=== PATIENT | male | born 1990 | race Caucasian/White ===

== ENCOUNTER 2017-09-11 20:33 | Emergency (ER) | payer OTHER, SELFPAY | END 2017-09-12 09:00 | disposition home or self-care (01) | PROVIDERS: Emergency Provider Emergency Medicine; Visit Provider Emergency Medicine | DX: F43.20 Adjustment disorder, unspecified (principal) | CPT/HCPCS: 36415; 80053; 80305; 80320; 80329; 83690; 85025; 99058; 99283; G0480 ==